=== PATIENT | male | born 1990 | race Caucasian/White ===

== ENCOUNTER 2018-01-25 16:22 | Emergency (ER) | payer SELFPAY ==
[~2018-01-25] VITALS: Ht 180.3 cm; Wt 72.6 kg
[2018-01-25] MEDS ORDERED: NS IV 1000 ML 1,000 ML IV SCH (16:45)
[2018-01-25] MEDS ORDERED: ONDANSETRON 4 MG/2 ML (SDV) Z0FRAN IVP ONE (16:45)
[2018-01-25] MEDS ORDERED: KETOROLAC 30 MG/ML VIAL IVP ONE (16:45)
[2018-01-25 17:06] VITALS: BP 138/82
== END 2018-01-25 17:06 | disposition left against medical advice (07) ==
LOC: EDUNIT# 16:22 → ER 16:25
DX: R50.9 Fever, unspecified (principal)
CPT/HCPCS: 99281

== ENCOUNTER 2018-10-27 16:02 | Emergency (ER) | payer SELFPAY ==
[~2018-10-27] VITALS: Ht 180.3 cm; Wt 68.0 kg
[2018-10-27] MEDS ORDERED: FLUORESCEIN (FLUOR-I-STRIPS) 1 MG STRP OU ONE (16:45)
[2018-10-27] MEDS ORDERED: BSS 15 ML IR ONE (16:45)
[2018-10-27] MEDS ORDERED: TETRACAINE 0.5% OPHTH SOLN 4 ML BTL (SINGLE DOSE ONLY) OU ONE (16:45)
[2018-10-27] MEDS ORDERED: HYDROcodone/APAP 5 MG/325 MG (LORTAB) TAB PO ONE (17:15)
[2018-10-27] MEDS ORDERED: GENTAMICIN 0.3% OPHTH OINT 3.5 GM TUBE OP SCH (17:15)
[2018-10-27] MEDS ORDERED: HYDR-4226 PO (17:16)
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
[2018-10-27 17:38] VITALS: BP 132/76
[2018-10-27] MEDS ORDERED: TOBRAMYCIN (TOBREX) 0.3% OP OINT 3.5 GM TUBE OU SCH (21:00)
== END 2018-10-27 17:49 | disposition home or self-care (01) ==
LOC: EDUNIT# 16:02 → ER 16:03
DX: S05.02XA Injury of conjunctiva and corneal abrasion without foreign body, left eye, initial encounter (principal); F17.210 Nicotine dependence, cigarettes, uncomplicated; W22.09XA Striking against other stationary object, initial encounter
CPT/HCPCS: 99282

== ENCOUNTER 2018-11-01 05:22 | Emergency (ER) | payer OTHER ==
[~2018-11-01] VITALS: Ht 180.3 cm; Wt 68.0 kg
[~2018-11-01 05:22] MED LIST: HYDR-4226 PO
[2018-11-01 05:29] VITALS: BP 132/80
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
== END 2018-11-01 05:39 | disposition left against medical advice (07) ==
LOC: EDUNIT# 05:22 → ER 05:25
DX: K08.89 Other specified disorders of teeth and supporting structures (principal); M25.511 Pain in right shoulder; M79.651 Pain in right thigh; M79.641 Pain in right hand; R40.2142 Coma scale, eyes open, spontaneous, at arrival to emergency department; R40.2252 Coma scale, best verbal response, oriented, at arrival to emergency department; R40.2362 Coma scale, best motor response, obeys commands, at arrival to emergency department; Z77.22 Contact with and (suspected) exposure to environmental tobacco smoke (acute) (chronic); V53.5XXA Driver of pick-up truck or van injured in collision with car, pick-up truck or van in traffic accident, initial encounter
CPT/HCPCS: 99282